=== PATIENT | male | born 1935 | race Caucasian/White ===

== ENCOUNTER 2018-03-24 11:18 | Emergency (ER) | payer OTHER ==
[~2018-03-24] VITALS: Ht 162.6 cm; Wt 70.3 kg
[2018-03-24] MEDS ORDERED: ULTRACET PO (15:27)
[2018-03-24] MEDS ORDERED: TAMS0.4C PO (15:27)
== END 2018-03-24 17:56 | disposition home or self-care (01) ==
LOC: ER 11:18
DX: N20.1 Calculus of ureter (principal); R10.32 Left lower quadrant pain

== ENCOUNTER 2018-04-06 08:02 | Emergency (ER) | payer OTHER ==
[~2018-04-06] VITALS: Ht 167.6 cm; Wt 81.6 kg
[~2018-04-06 08:02] MED LIST: TAMS0.4C PO; ULTRACET PO
[2018-04-06] MEDS ORDERED: SYNTHROID150 MCG PO (08:20)
[2018-04-06] MEDS ORDERED: CALTRATE 600 +1 EACH PO (08:21)
[2018-04-06] MEDS ORDERED: CALCITRIOL0.5 MCG PO (08:21)
[2018-04-06] MEDS ORDERED: OXYTROL FOR WO1 EACH TD (08:21)
== END 2018-04-06 14:37 | disposition home or self-care (01) ==
LOC: ER 08:02
DX: R10.32 Left lower quadrant pain (principal)